=== PATIENT | male | born 1985 | race Caucasian/White ===

== ENCOUNTER 2021-09-13 09:55 | Emergency (ER) | payer BC ==
[2021-09-13 10:43] LABS: HEMOGLOBIN 15.6 gm/dl (14.0-17.5); RED BLOOD COUNT 5.19 M/UL (4.20-5.50); WHITE BLOOD COUNT 4.2 K/UL (4.5-11.0)
[2021-09-13 11:47] LABS: BUN/CREATININE RATIO 7 (0-10)
== END 2021-09-13 12:45 | disposition home or self-care (01) ==
LOC: ER1 09:55
PROVIDERS: Emergency Medicine
DX: U07.1 COVID-19 (principal); Z90.49 Acquired absence of other specified parts of digestive tract
CPT/HCPCS: 71045; 80053; 85025; 99283; J7030